=== PATIENT | female | born 2000 | race Caucasian/White ===

== ENCOUNTER 2021-01-05 15:23 | Emergency (ER) | payer OTHER, SELFPAY ==
[2021-01-05 15:24] VITALS: BP 140/85; PULSE 77; RESP 16; TEMP 36.8; O2SAT 98; BMI 29.9
--- NOTE | 2021-01-05 15:33 | ED.VIS.GEN ---
History of Present Illness Chief Complaint: Laceration Informant: Patient Onset: Today Context: Sudden Onset Timing: - - Laceration tip of last thumb Quality: Laceration concern nailbed injury Location: Tip left thumb Current Severity: Mild Maximum Severity: Mild Worsened by: Injury cutting sandwich with knife Relieved by: Pressure Associated Symptoms: None Narrative: Patient is a 20-year-old [id number] male presents with laceration to the tip of his left thumb. This occurred while he was cutting a sandwich at work. Tetanus is up-to-date. Denies paresthesia, anesthesia motors. Concern was that this involved the nailbed. Prior similar symptoms: No Recent Illness/Hospitalization: No - Past Medical History (1) No significant past medical history Status: Acute Past Medical History - Allergies and Home Meds Allergies/Adverse Reactions: Allergies No Known Allergies Allergy (Verified 01/05/21 15:24) Primary Care Physician: Ron Gale MD [Primary Care Provider] - Prior records reviewed: No Past Medical History: None Surgical History: no surgical history Lives: Alone Smoking Status: Never smoker Alcohol: None Review of Systems Musculoskeletal: Denies: Swelling, Extremity Pain Skin: Reports: Wounds. Denies: Rash, Abscess Neurological: Denies: Weakness, Parasthesia, Numbness Hematologic: Denies: Easy bruising, Easy bleeding Physical Exam Vital Signs/Narrative: Vital Signs Temp Pulse Resp BP Pulse Ox 01/05/21 15:24 98.2 F 77 16 140/85 H 98 Inital Vital Signs reviewed: Yes General: Well nourished, Well developed, No Acute Distress Head: Normocephalic, Atraumatic Eyes: Perrl, EOMI Cardiovascular: Regular rate, Regular rhythm Respiratory: No distress Skin: Normal color, No rash, Trauma. Negative for: Cyanosis, Diaphoresis, Jaundice Neurological: Alert, Oriented x3, Cranial nerves II-XII grossly intact, Normal Strength, Normal Sensation, Normal DTR Psychological: Normal affect Diagnostic/Tx/Re-eval - Medical Decision Making Patient has superficial V-shaped flap injury tip of the left thumb. There is a small genesis in the nail. There is no neurovascular mice. There is no subungual hematoma noted. Patient has full active range of motion of the thumb. Says tetanus up-to-date will have wound cleansed and dressed. Patient will be discharged. ED Disposition - Plan for ED Patient: Disposition: Home or Assisted Living Diagnosis: Laceration of left thumb without damage to nail Instructions: ED Laceration Small or ... Referrals: Ron Gale MD [Primary Care Provider] - [facility], [place] [GROUP OF PHYSICIANS] - 2 Days for wound check
[2021-01-05 16:00] VITALS: RESP 18
== END 2021-01-05 16:30 | disposition home or self-care (01) ==
LOC: ED 15:45
PROVIDERS: Emergency Provider Emergency Medicine; PCP Pediatrics
DX: S61.012A Laceration without foreign body of left thumb without damage to nail, initial encounter (principal); W26.0XXA Contact with knife, initial encounter
CPT/HCPCS: 99282